=== PATIENT | male | born 1970 | race Asian ===

== ENCOUNTER → 2021-04-23 | Outpatient (CLI) | payer OTHER ==
[~2021-04-23] MED LIST: CITA-144 PO
== END | disposition home or self-care (01) ==
LOC: LABMN 10:09
PROVIDERS: ATTEND Internal Medicine
DX: Z02.1 Encounter for pre-employment examination (principal)
CPT/HCPCS: 86706; 86735; 86762; 86765; 86787

== ENCOUNTER 2023-03-11 09:36 | Inpatient (IN) | payer MEDICAID, OTHER ==
[~2023-03-11] VITALS: Ht 167.6 cm; Wt 86.2 kg
[2023-03-11] MEDS ORDERED: PANTOPRAZOLE SODIUM 40 MG/VIAL IVP ONE (10:00)
[2023-03-11] MEDS ORDERED: SODIUM CHLORIDE 0.9% 1,000 ML IV ONE ×2 (10:00→11:45)
[2023-03-11] MEDS ORDERED: ONDANSETRON HCL 4 MG/2 ML VIAL IVP ONE (10:00)
[2023-03-11] MEDS ORDERED: MORPHINE SULFATE 2 MG/ML SYRINGE IVP ONE (10:00)
[2023-03-11] MEDS ORDERED: IOHEXOL 350 MG/ML 100 ML VIAL ONE (10:14)
[2023-03-11] MEDS ORDERED: SODIUM CHLORIDE 0.9% 100 ML ONE (10:14)
[2023-03-11] MEDS ORDERED: AZITHROMYCIN 500 MG/NS 250 ML IV ONE (10:15)
[2023-03-11] MEDS ORDERED: CefTRIAXone 1 GM/DEXTROSE 50 ML IV ONE (10:15)
[2023-03-11] MEDS: PANTOPRAZOLE SODIUM 80 MG in SODIUM CHLORIDE 0.9% 100 ML IV SCH ×2 (10:16→20:00)
[2023-03-11 10:20] LABS: BASOPHILS % (AUTO) 0.4 % (0.0-2.0); EOSINOPHILS % (AUTO) 0 % (1.0-6.0); HEMATOCRIT 26.7 % (41-53); LYMPHOCYTES # (AUTO) 0.8 K/uL (1.0-4.8); LYMPHOCYTES % (AUTO) 7.1 % (22.0-44.0); MEAN CORPUSCULAR HEMOGLOBIN 28.8 pg (26.0-34.0); MEAN CORPUSCULAR HGB CONC 33.8 G/dL (31.0-37.0); MEAN CORPUSCULAR VOLUME 85 fL (80-100); MONOCYTES # (AUTO) 0.7 K/uL (0.1-1.0); MONOCYTES % (AUTO) 6.7 % (2.0-9.0); NEUTROPHILS # (AUTO) 9.5 K/uL (1.8-7.7); NEUTROPHILS % (AUTO) 85.8 % (40.0-70.0); PLATELET COUNT (AUTO) 737 K/uL (150-450); RED BLOOD CELL COUNT(AUTO) 3.13 MIL/uL (4.50-5.90); RED CELL DISTRIBUTION WIDTH 14.3 % (11.5-14.5); WHITE BLOOD COUNT (AUTO) 11.1 K/uL (4.5-11.0)
[2023-03-11 10:28] LABS: ANION GAP 14 mmol/L (8-16); CALCIUM, TOTAL 8.5 mg/dL (8.8-10.5); CARBON DIOXIDE 26 mmol/L (22-29); CHLORIDE 94 mmol/L (98-107); CREATININE 1.21 mg/dL (0.60-1.30); GLOMERULAR FILTR. RATE CALC > 60 mL/min (>60); GLUCOSE,RANDOM 118 mg/dL (70-110); POTASSIUM 3.8 mmol/L (3.5-5.1); SODIUM SERUM 134 mmol/L (136-145); UREA NITROGEN, BLOOD 20 mg/dL (7-18)
[2023-03-11 10:34] LABS: ALANINE AMINOTRANSFERASE 615 U/L (12-78); ALBUMIN 2.5 g/dL (3.4-5.0); ALKALINE PHOSPHATASE 333 U/L (46-116); ASPARTATE AMINOTRANSFERASE 903 U/L (15-37); BILIRUBIN,TOTAL 1.5 mg/dL (0.1-1.0); CREATINE KINASE, TOTAL ONLY 70 U/L (39-308); INR 1.3 (0.9-1.1); LIPASE 45 U/L (16-77); PROTHROMBIN TIME 13.7 SEC (9.4-11.6); TOTAL PROTEIN, SERUM 7.9 g/dL (6.4-8.2)
[2023-03-11 10:35] LABS: ACETAMINOPHEN < 2 mcg/mL (10-30); TROPONIN I-HIGH SENSITIVITY 23 ng/L (<76)
[2023-03-11 10:39] LABS: COVID AG,FIA SOURCE NASAL SWAB
[2023-03-11 10:40] LABS: B-TYPE NATRIURETIC PEPTIDE 163 pg/mL (0-100)
[2023-03-11 10:41] LABS: LACTIC ACID 3.8 mmol/L (0.4-2.0)
[2023-03-11 10:44] LABS: OCCULT BLOOD STOOL SINGLE ONLY NEGATIVE (NEGATIVE)
[2023-03-11 10:49] LABS: ALCOHOL, BLOOD (SERUM) < 3 mg/dL (0-10)
[2023-03-11 10:55] LABS: SALICYLATE < 2.8 mg/dL (2.8-20.0)
[2023-03-11 10:59] LABS: INFLUENZA TYPE A NEGATIVE FOR TYPE A (NEGATIVE); INFLUENZA TYPE B NEGATIVE FOR TYPE B (NEGATIVE)
[2023-03-11 11:14] LABS: SARS-COV2 (COVID) ANTIGEN,FIA Positive (Negative)
[2023-03-11 12:43] LABS: TROPONIN I-HIGH SENSITIVITY 19 ng/L (<76)
[2023-03-11] MEDS ORDERED: IBUPROFEN 600 MG TABLET PO ONE (13:30)
[2023-03-11] MEDS ORDERED: 0.9% SODIUM CHLORIDE 10 ML SYRINGE IVP PRN (13:45)
[2023-03-11] MEDS ORDERED: ONDANSETRON HCL 4 MG/2 ML VIAL IVP PRN ×2 (13:45→14:15)
[2023-03-11] MEDS ORDERED: IBUPROFEN 400 MG TABLET PO SCH (14:15)
[2023-03-11] MEDS ORDERED: MAGNESIUM HYDROXIDE SUSPENSION 30 ML UDCUP PO PRN (14:15)
[2023-03-11] MEDS ORDERED: ACETAMINOPHEN 325 MG TABLET PO PRN (14:15)
[2023-03-11] MEDS ORDERED: BISACODYL 10 MG RECTAL RECTAL SUPPOSITORY PR PRN (14:15)
[2023-03-11] MEDS: SODIUM CHLORIDE 0.9% 1,000 ML IV SCH ×2 (14:48→22:08)
[2023-03-11] MEDS: COLCHICINE 0.6 MG TABLET PO SCH ×2 (15:18→22:09)
[2023-03-11] MEDS ORDERED: SODIUM CHLORIDE 0.9% 250 ML IV ONE (15:20)
[2023-03-11 16:00] VITALS: BP 122/79; PULSE 113; PULSE 115; RESP 17; TEMP 99.4
[2023-03-11] MEDS: MORPHINE SULFATE 2 MG/ML SYRINGE IVP PRN (16:03)
[2023-03-11 20:00] VITALS: BP 131/84; PULSE 111; PULSE 113; RESP 19; TEMP 99.5
[2023-03-11 21:01] LABS: HEMOGLOBIN 8.9 g/dL (13.5-17.5)
[2023-03-11] MEDS: ZOLPIDEM TARTRATE 5 MG TABLET PO PRN (22:07)
[2023-03-11] MEDS: DOCUSATE SODIUM 100 MG CAPSULE PO SCH (22:09)
[2023-03-12] VITALS: BP 113/81; PULSE 113; PULSE 119; RESP 24; TEMP 98.2
[2023-03-12] MEDS: IBUPROFEN 600 MG TABLET PO SCH ×5 (00:36→23:02)
[2023-03-12 01:13] LABS: APPEARANCE,URINE CLEAR (CLEAR); BILIRUBIN,URINE NEGATIVE (NEGATIVE); COLOR,URINE YELLOW (YELLOW); GLUCOSE, URINE (UA) NEGATIVE (NEGATIVE); KETONES,URINE NEGATIVE (NEGATIVE); LEUKOCYTE ESTERASE ,URINE NEGATIVE (NEGATIVE); NITRATE,URINE NEGATIVE (NEGATIVE); OCCULT BLOOD,URINE NEGATIVE (NEGATIVE); PROTEIN,URINE 30-70 mg/dL (NEGATIVE); UROBILINOGEN,URINE <=1.0 mg/dL (<=1.0)
[2023-03-12 01:20] LABS: ALCOHOL, URINE DRUG SCREEN NEGATIVE (NEGATIVE); AMPHET/METH SCREEN,URINE NEGATIVE (NEGATIVE); BARBITURATE SCREEN, URINE NEGATIVE (NEGATIVE); BENZODIAZEPINES SCREEN,URINE NEGATIVE (NEGATIVE); CANNABINOID SCREEN,URINE POSITIVE (NEGATIVE); COCAINE SCREEN,URINE NEGATIVE (NEGATIVE); METHADONE SCREEN, URINE NEGATIVE (NEGATIVE); OPIATE SCREEN,URINE POSITIVE (NEGATIVE); PHENCYCLIDINE SCREEN,URINE NEGATIVE (NEGATIVE)
[2023-03-12 04:00] VITALS: BP 101/74; PULSE 123; RESP 26; TEMP 98.7
[2023-03-12 05:55] LABS: BASOPHILS % (AUTO) 0.4 % (0.0-2.0); EOSINOPHILS % (AUTO) 0.1 % (1.0-6.0); HEMATOCRIT 25.5 % (41-53); HEMOGLOBIN 8.6 g/dL (13.5-17.5); LYMPHOCYTES # (AUTO) 1.3 K/uL (1.0-4.8); LYMPHOCYTES % (AUTO) 10.9 % (22.0-44.0); MEAN CORPUSCULAR HEMOGLOBIN 28.8 pg (26.0-34.0); MEAN CORPUSCULAR HGB CONC 33.5 G/dL (31.0-37.0); MEAN CORPUSCULAR VOLUME 86 fL (80-100); MONOCYTES % (AUTO) 8.6 % (2.0-9.0); NEUTROPHILS # (AUTO) 9.6 K/uL (1.8-7.7); PLATELET COUNT (AUTO) 675 K/uL (150-450); RED BLOOD CELL COUNT(AUTO) 2.97 MIL/uL (4.50-5.90); RED CELL DISTRIBUTION WIDTH 14.3 % (11.5-14.5)
[2023-03-12 05:56] LABS: INR 1.4 (0.9-1.1); PROTHROMBIN TIME 14.3 SEC (9.4-11.6)
[2023-03-12 06:05] LABS: TROPONIN I-HIGH SENSITIVITY 16 ng/L (<76)
[2023-03-12] MEDS: SODIUM CHLORIDE 0.9% 1,000 ML IV SCH ×3 (06:37→16:08)
[2023-03-12] MEDS: PANTOPRAZOLE SODIUM 40 MG DR TABLET PO SCH (07:46)
[2023-03-12] MEDS: DOCUSATE SODIUM 100 MG CAPSULE PO SCH ×2 (07:47→20:49)
[2023-03-12] MEDS: COLCHICINE 0.6 MG TABLET PO SCH ×2 (07:47→20:49)
[2023-03-12] MEDS: CefTRIAXone 1 GM/DEXTROSE 50 ML IV SCH (07:48)
[2023-03-12 08:00] VITALS: BP 122/81; PULSE 123; PULSE 124; RESP 19; TEMP 98.5
[2023-03-12 10:23] LABS: ANION GAP 15 mmol/L (8-16); CALCIUM, TOTAL 8.3 mg/dL (8.8-10.5); CARBON DIOXIDE 21 mmol/L (22-29); CHLORIDE 100 mmol/L (98-107); CREATININE 1.12 mg/dL (0.60-1.30); GLOMERULAR FILTR. RATE CALC > 60 mL/min (>60); GLUCOSE,RANDOM 98 mg/dL (70-110); POTASSIUM 4.3 mmol/L (3.5-5.1); SODIUM SERUM 136 mmol/L (136-145); UREA NITROGEN, BLOOD 24 mg/dL (7-18)
[2023-03-12 10:35] LABS: ALANINE AMINOTRANSFERASE 1133 U/L (12-78); ALBUMIN 2.3 g/dL (3.4-5.0); ALKALINE PHOSPHATASE 287 U/L (46-116); BILIRUBIN,TOTAL 1.2 mg/dL (0.1-1.0); TOTAL PROTEIN, SERUM 7.5 g/dL (6.4-8.2)
[2023-03-12 10:38] LABS: ASPARTATE AMINOTRANSFERASE 1869 U/L (15-37)
[2023-03-12] MEDS: AZITHROMYCIN 500 MG/NS 250 ML IV SCH (10:47)
[2023-03-12 11:23] LABS: C-REACTIVE PROTEIN QUANT 20.57 mg/dL (0.00-0.30)
[2023-03-12 12:00] VITALS: BP 127/77; PULSE 113; PULSE 115; RESP 17; TEMP 98.2
[2023-03-12] MEDS: MORPHINE SULFATE 2 MG/ML SYRINGE IVP PRN ×3 (12:34→23:02)
[2023-03-12] MEDS ORDERED: VANCOMYCIN 1GM/WATER(PEG/NADA) 200 ML IV ONE (13:30)
[2023-03-12 13:32] LABS: HEMATOCRIT 26.2 % (41-53); HEMOGLOBIN 8.6 g/dL (13.5-17.5)
[2023-03-12 16:00] VITALS: BP 114/76; PULSE 108; PULSE 109; RESP 15; TEMP 98.4
[2023-03-12 20:00] VITALS: BP 120/74; PULSE 106; RESP 13; TEMP 98.2
[2023-03-12] MEDS: VANCOMYCIN 1GM/WATER(PEG/NADA) 200 ML IV SCH (20:49)
[2023-03-12 21:37] LABS: HEMATOCRIT 26.2 % (41-53); HEMOGLOBIN 8.6 g/dL (13.5-17.5)
[2023-03-13] VITALS (8 sets, daily range): BP systolic 125–155; BP diastolic 58–102; PULSE 94–110; RESP 13–26; TEMP 98–98.5
[2023-03-13] MEDS: MORPHINE SULFATE 2 MG/ML SYRINGE IVP PRN ×3 (03:16→12:18)
[2023-03-13 05:34] LABS: BASOPHILS % (AUTO) 0.4 % (0.0-2.0); EOSINOPHILS % (AUTO) 0.2 % (1.0-6.0); HEMATOCRIT 26.2 % (41-53); HEMOGLOBIN 8.9 g/dL (13.5-17.5); LYMPHOCYTES # (AUTO) 1.5 K/uL (1.0-4.8); LYMPHOCYTES % (AUTO) 9.8 % (22.0-44.0); MEAN CORPUSCULAR HEMOGLOBIN 29.1 pg (26.0-34.0); MEAN CORPUSCULAR VOLUME 86 fL (80-100); MONOCYTES # (AUTO) 0.9 K/uL (0.1-1.0); MONOCYTES % (AUTO) 6.2 % (2.0-9.0); NEUTROPHILS # (AUTO) 12.3 K/uL (1.8-7.7); NEUTROPHILS % (AUTO) 83.4 % (40.0-70.0); PLATELET COUNT (AUTO) 564 K/uL (150-450); RED BLOOD CELL COUNT(AUTO) 3.06 MIL/uL (4.50-5.90); RED CELL DISTRIBUTION WIDTH 14.6 % (11.5-14.5); WHITE BLOOD COUNT (AUTO) 14.8 K/uL (4.5-11.0)
[2023-03-13 05:45] LABS: INR 1.6 (0.9-1.1); PROTHROMBIN TIME 16.6 SEC (9.4-11.6)
[2023-03-13 06:03] LABS: ALBUMIN 2.2 g/dL (3.4-5.0); BILIRUBIN,TOTAL 1.4 mg/dL (0.1-1.0); C-REACTIVE PROTEIN QUANT 17.98 mg/dL (0.00-0.30); CREATININE 1.47 mg/dL (0.60-1.30); POTASSIUM 4.2 mmol/L (3.5-5.1); TOTAL PROTEIN, SERUM 7.1 g/dL (6.4-8.2)
[2023-03-13] MEDS: SODIUM CHLORIDE 0.9% 1,000 ML IV SCH ×3 (06:26→22:10)
[2023-03-13] MEDS ORDERED: SODIUM CHLORIDE 0.9% 250 ML IV ONE (08:13)
[2023-03-13] MEDS: PANTOPRAZOLE SODIUM 40 MG DR TABLET PO SCH (08:20)
[2023-03-13] MEDS: IBUPROFEN 600 MG TABLET PO SCH (08:20)
[2023-03-13] MEDS: COLCHICINE 0.6 MG TABLET PO SCH ×2 (08:21→22:10)
[2023-03-13] MEDS: VANCOMYCIN 1GM/WATER(PEG/NADA) 200 ML IV SCH (08:21)
[2023-03-13] MEDS: DOCUSATE SODIUM 100 MG CAPSULE PO SCH ×2 (08:21→22:10)
[2023-03-13] MEDS: CefTRIAXone 1 GM/DEXTROSE 50 ML IV SCH (08:21)
[2023-03-13] MEDS: AZITHROMYCIN 500 MG/NS 250 ML IV SCH (08:53)
[2023-03-13] MEDS ORDERED: LIDOCAINE/PF 1% 30 ML VIAL ONE (14:16)
[2023-03-13] MEDS ORDERED: MIDAZOLAM HCL 2 MG/2 ML VIAL ONE (14:16)
[2023-03-13] MEDS ORDERED: FentaNYL CITRATE PF 100 MCG/2 ML VIAL ONE (14:16)
[2023-03-13] MEDS ORDERED: HEPARIN SODIUM 1000 UNITS/NS 1,000 ML IARTER ONE (14:30)
[2023-03-13] MEDS ORDERED: LIDOCAINE 1% 30 ML/SOD BICARB 8.4% 4 ML SQ ONE (14:30)
[2023-03-13] MEDS ORDERED: FentaNYL CITRATE PF 100 MCG/2 ML VIAL IVP ONE (14:30)
[2023-03-13] MEDS ORDERED: ATROPINE SULFATE 0.1 MG/ML 10 ML SYRINGE IVP ONE (14:50)
[2023-03-13 19:16] LABS: SPECIMENTYPE,BODY FLUID PERICARDIAL
[2023-03-13 21:24] LABS: APPEARANCE,UNSPUN,BODY FLUID CLOUDY (CLEAR); BASOPHILS,BODY FLUID 0 %; COLOR,BODY FLUID DARK YELLOW (LT YELLOW); EOSINOPHILS,BF (ANAL) 0 %; LYMPHOCYTES,BODY FLUID 8 %; MONOCYTES,BODY FLUID 1 %; NEUTROPHILS,BODY FLUID 91 %; TOTAL VOLUME,BODY FLUID 120 mL
[2023-03-13 22:02] LABS: WBC, BODY FLUID 165600 /cu. mm.
[2023-03-13 22:09] LABS: APPEARANCE,SPUN,BODY FLUID CLEAR (CLEAR)
[2023-03-13] MEDS: VANCOMYCIN HCL 750 MG in DEXTROSE 5%-WATER 250 ML IV SCH (22:10)
[2023-03-14] VITALS: BP 134/90; PULSE 102; PULSE 99; RESP 16; TEMP 98.3
[2023-03-14 03:07] LABS: HEPATITIS A ANTIBODY IGM Negative (Negative); HEPATITIS A ANTIBODY TOTAL Positive (Negative); HEPATITIS B CORE IGM Negative (Negative); HEPATITIS C AB (EIA) Non Reactive (Non Reactive)
[2023-03-14 04:00] VITALS: BP 130/79; PULSE 100; PULSE 101; RESP 13; TEMP 98
[2023-03-14 05:51] LABS: HEMATOCRIT 28.9 % (41-53); MEAN CORPUSCULAR HEMOGLOBIN 29.5 pg (26.0-34.0); MEAN CORPUSCULAR HGB CONC 34.5 G/dL (31.0-37.0); MEAN CORPUSCULAR VOLUME 85 fL (80-100); PLATELET COUNT (AUTO) 557 K/uL (150-450); RED BLOOD CELL COUNT(AUTO) 3.38 MIL/uL (4.50-5.90); RED CELL DISTRIBUTION WIDTH 14.4 % (11.5-14.5); WHITE BLOOD COUNT (AUTO) 12.6 K/uL (4.5-11.0)
[2023-03-14 06:03] LABS: INR 1.6 (0.9-1.1); PROTHROMBIN TIME 16.1 SEC (9.4-11.6)
[2023-03-14 06:13] LABS: ALANINE AMINOTRANSFERASE 1401 U/L (12-78); ALBUMIN 1.9 g/dL (3.4-5.0); ALKALINE PHOSPHATASE 240 U/L (46-116); ANION GAP 9 mmol/L (8-16); CALCIUM, TOTAL 7.5 mg/dL (8.8-10.5); CARBON DIOXIDE 23 mmol/L (22-29); CHLORIDE 105 mmol/L (98-107); CREATININE 1.03 mg/dL (0.60-1.30); GLOMERULAR FILTR. RATE CALC > 60 mL/min (>60); GLUCOSE,RANDOM 94 mg/dL (70-110); POTASSIUM 3.7 mmol/L (3.5-5.1); SODIUM SERUM 137 mmol/L (136-145); TOTAL PROTEIN, SERUM 6.5 g/dL (6.4-8.2); UREA NITROGEN, BLOOD 26 mg/dL (7-18)
[2023-03-14 06:18] LABS: BAND NEUTROPHILS % (MANUAL) 14 % (0-5); LYMPHOCYTES % (MANUAL) 8 % (22-44); METAMYELOCYTES % 2 % (0-0); MONOCYTES % (MANUAL) 6 % (2-9); MYELOCYTES % 2 % (0-0); SEGMENTED NEUTROPHILS % 68 % (40-70); TOTAL CELLS COUNTED 100
[2023-03-14 06:24] LABS: ASPARTATE AMINOTRANSFERASE 1389 U/L (15-37)
[2023-03-14] MEDS: SODIUM CHLORIDE 0.9% 1,000 ML IV SCH ×3 (06:24→22:34)
[2023-03-14 07:07] LABS: ANION GAP 12 mmol/L (8-16); CALCIUM, TOTAL 7.8 mg/dL (8.8-10.5); CARBON DIOXIDE 21 mmol/L (22-29); CHLORIDE 104 mmol/L (98-107); CREATININE 0.97 mg/dL (0.60-1.30); GLOMERULAR FILTR. RATE CALC > 60 mL/min (>60); GLUCOSE,RANDOM 95 mg/dL (70-110); POTASSIUM 3.7 mmol/L (3.5-5.1); SODIUM SERUM 137 mmol/L (136-145); UREA NITROGEN, BLOOD 26 mg/dL (7-18)
[2023-03-14 08:00] VITALS: BP 124/81; PULSE 101; RESP 11; TEMP 98.1
[2023-03-14] MEDS: VANCOMYCIN HCL 750 MG in DEXTROSE 5%-WATER 250 ML IV SCH ×2 (08:15→22:34)
[2023-03-14] MEDS: MORPHINE SULFATE 2 MG/ML SYRINGE IVP PRN ×2 (08:20→12:11)
[2023-03-14] MEDS: PANTOPRAZOLE SODIUM 40 MG DR TABLET PO SCH (08:30)
[2023-03-14] MEDS: COLCHICINE 0.6 MG TABLET PO SCH ×2 (08:30→22:34)
[2023-03-14] MEDS: DOCUSATE SODIUM 100 MG CAPSULE PO SCH ×2 (08:30→20:24)
[2023-03-14] MEDS: CefTRIAXone 1 GM/DEXTROSE 50 ML IV SCH (08:31)
[2023-03-14 12:00] VITALS: BP 97/84; PULSE 101; PULSE 97; RESP 18; TEMP 98
[2023-03-14] MEDS: AZITHROMYCIN 500 MG/NS 250 ML IV SCH (12:14)
[2023-03-14] MEDS: HYDROCODONE/ACETAMINOPHEN 5-325 MG TABLET PO PRN (12:15)
[2023-03-14 13:07] LABS: TOTAL PROTEIN,BODY FLUID,REF 5.4 g/dL
[2023-03-14 16:00] VITALS: BP 138/78; PULSE 93; RESP 11; TEMP 98.1
[2023-03-14 20:00] VITALS: BP 148/76; PULSE 103; PULSE 67; RESP 20; TEMP 98.3
[2023-03-15] VITALS: BP 163/88; PULSE 105; PULSE 53; RESP 18; TEMP 98.7
[2023-03-15] MEDS: MORPHINE SULFATE 2 MG/ML SYRINGE IVP PRN ×2 (03:12→08:07)
[2023-03-15 04:00] VITALS: BP 166/97; PULSE 102; PULSE 48; RESP 20; TEMP 99
[2023-03-15] MEDS: HYDROCODONE/ACETAMINOPHEN 5-325 MG TABLET PO PRN ×3 (04:14→20:41)
[2023-03-15 05:53] LABS: BASOPHILS % (AUTO) 0.2 % (0.0-2.0); EOSINOPHILS % (AUTO) 0.6 % (1.0-6.0); HEMOGLOBIN 9.8 g/dL (13.5-17.5); LYMPHOCYTES # (AUTO) 0.8 K/uL (1.0-4.8); LYMPHOCYTES % (AUTO) 9.2 % (22.0-44.0); MEAN CORPUSCULAR HEMOGLOBIN 28.8 pg (26.0-34.0); MEAN CORPUSCULAR HGB CONC 33.8 G/dL (31.0-37.0); MEAN CORPUSCULAR VOLUME 85 fL (80-100); MONOCYTES # (AUTO) 0.5 K/uL (0.1-1.0); MONOCYTES % (AUTO) 6.6 % (2.0-9.0); NEUTROPHILS # (AUTO) 6.9 K/uL (1.8-7.7); NEUTROPHILS % (AUTO) 83.4 % (40.0-70.0); PLATELET COUNT (AUTO) 527 K/uL (150-450); RED BLOOD CELL COUNT(AUTO) 3.41 MIL/uL (4.50-5.90); RED CELL DISTRIBUTION WIDTH 14.6 % (11.5-14.5); WHITE BLOOD COUNT (AUTO) 8.3 K/uL (4.5-11.0)
[2023-03-15 06:07] LABS: INR 1.4 (0.9-1.1); PROTHROMBIN TIME 14.7 SEC (9.4-11.6)
[2023-03-15 06:08] LABS: VANCOMYCIN,RANDOM 4.3 mcg/mL (25.0-50.0)
[2023-03-15] MEDS: SODIUM CHLORIDE 0.9% 1,000 ML IV SCH ×2 (06:41→20:41)
[2023-03-15 07:13] LABS: ALANINE AMINOTRANSFERASE 931 U/L (12-78); ALBUMIN 1.9 g/dL (3.4-5.0); ALKALINE PHOSPHATASE 212 U/L (46-116); ANION GAP 10 mmol/L (8-16); ASPARTATE AMINOTRANSFERASE 483 U/L (15-37); C-REACTIVE PROTEIN QUANT 9.58 mg/dL (0.00-0.30); CALCIUM, TOTAL 7.4 mg/dL (8.8-10.5); CARBON DIOXIDE 24 mmol/L (22-29); CHLORIDE 104 mmol/L (98-107); CREATININE 0.78 mg/dL (0.60-1.30); GLOMERULAR FILTR. RATE CALC > 60 mL/min (>60); GLUCOSE,RANDOM 99 mg/dL (70-110); POTASSIUM 3.2 mmol/L (3.5-5.1); SODIUM SERUM 138 mmol/L (136-145); TOTAL PROTEIN, SERUM 6.3 g/dL (6.4-8.2); UREA NITROGEN, BLOOD 9 mg/dL (7-18)
[2023-03-15] MEDS: COLCHICINE 0.6 MG TABLET PO SCH ×2 (07:59→20:41)
[2023-03-15] MEDS: PANTOPRAZOLE SODIUM 40 MG DR TABLET PO SCH (07:59)
[2023-03-15 08:00] VITALS: BP 129/78; PULSE 96; RESP 16; TEMP 98.7
[2023-03-15] MEDS: CefTRIAXone 1 GM/DEXTROSE 50 ML IV SCH (08:00)
[2023-03-15] MEDS: VANCOMYCIN HCL 750 MG in DEXTROSE 5%-WATER 250 ML IV SCH ×2 (08:00→16:21)
[2023-03-15] MEDS: AZITHROMYCIN 500 MG/NS 250 ML IV SCH (10:19)
[2023-03-15] MEDS: POTASSIUM CHLORIDE 20 MEQ ER TABLET PO PRN (11:32)
[2023-03-15 12:00] VITALS: BP 156/93; PULSE 101; RESP 21; TEMP 98.4
[2023-03-15 13:07] LABS: QUANTIFERON+, Nil Value 0.02 IU/mL; QUANTIFERON+,Mitogen Value 0.03 IU/mL; QUANTIFERON+,TB1 Antigen Value 0.01 IU/mL; QUANTIFERON+,TB2 Antigen Value 0.01 IU/mL; QUANTIFERON, TB GOLD PLUS Indeterminate (Negative)
[2023-03-15] MEDS: NAFCILLIN SODIUM 1 GM in DEXTROSE 5%-WATER 50 ML IV SCH ×3 (14:12→20:42)
[2023-03-15 16:00] VITALS: BP 140/90; PULSE 96; RESP 11; TEMP 98.5
[2023-03-15 20:00] VITALS: BP 140/90; PULSE 98; RESP 15; TEMP 97.8
[2023-03-15 20:06] LABS: MYCOPLASMA AB IGM <770 U/mL (0-769)
[2023-03-16] VITALS: BP 154/93; PULSE 96; RESP 12; TEMP 98.4
[2023-03-16] MEDS: VANCOMYCIN HCL 750 MG in DEXTROSE 5%-WATER 250 ML IV SCH ×2 (01:43→08:57)
[2023-03-16] MEDS: NAFCILLIN SODIUM 1 GM in DEXTROSE 5%-WATER 50 ML IV SCH ×4 (02:00→14:32)
[2023-03-16] MEDS: HYDROCODONE/ACETAMINOPHEN 5-325 MG TABLET PO PRN ×2 (02:18→20:12)
[2023-03-16 04:00] VITALS: BP 152/98; PULSE 94; RESP 13; TEMP 98.2
[2023-03-16] MEDS: SODIUM CHLORIDE 0.9% 1,000 ML IV SCH ×2 (04:45→16:07)
[2023-03-16 05:52] LABS: BASOPHILS % (AUTO) 0.4 % (0.0-2.0); EOSINOPHILS % (AUTO) 1.9 % (1.0-6.0); HEMATOCRIT 30.8 % (41-53); HEMOGLOBIN 10.2 g/dL (13.5-17.5); LYMPHOCYTES # (AUTO) 1.1 K/uL (1.0-4.8); MEAN CORPUSCULAR HEMOGLOBIN 28.5 pg (26.0-34.0); MEAN CORPUSCULAR HGB CONC 33.2 G/dL (31.0-37.0); MEAN CORPUSCULAR VOLUME 86 fL (80-100); MONOCYTES # (AUTO) 0.7 K/uL (0.1-1.0); MONOCYTES % (AUTO) 10.1 % (2.0-9.0); NEUTROPHILS # (AUTO) 4.6 K/uL (1.8-7.7); NEUTROPHILS % (AUTO) 70.6 % (40.0-70.0); PLATELET COUNT (AUTO) 497 K/uL (150-450); RED BLOOD CELL COUNT(AUTO) 3.59 MIL/uL (4.50-5.90); RED CELL DISTRIBUTION WIDTH 14.6 % (11.5-14.5); WHITE BLOOD COUNT (AUTO) 6.6 K/uL (4.5-11.0)
[2023-03-16 06:08] LABS: ALANINE AMINOTRANSFERASE 679 U/L (12-78); ALBUMIN 1.9 g/dL (3.4-5.0); ALKALINE PHOSPHATASE 194 U/L (46-116); ANION GAP 8 mmol/L (8-16); ASPARTATE AMINOTRANSFERASE 233 U/L (15-37); CALCIUM, TOTAL 7.5 mg/dL (8.8-10.5); CARBON DIOXIDE 28 mmol/L (22-29); CHLORIDE 103 mmol/L (98-107); CREATININE 0.68 mg/dL (0.60-1.30); GLOMERULAR FILTR. RATE CALC > 60 mL/min (>60); GLUCOSE,RANDOM 95 mg/dL (70-110); SODIUM SERUM 139 mmol/L (136-145); TOTAL PROTEIN, SERUM 6.4 g/dL (6.4-8.2); UREA NITROGEN, BLOOD 5 mg/dL (7-18)
[2023-03-16] MEDS: POTASSIUM CHLORIDE 20 MEQ ER TABLET PO PRN ×3 (06:35→17:48)
[2023-03-16 08:00] VITALS: BP 167/103; PULSE 100; RESP 22; TEMP 98.5
[2023-03-16] MEDS: COLCHICINE 0.6 MG TABLET PO SCH ×2 (08:57→20:12)
[2023-03-16] MEDS: PANTOPRAZOLE SODIUM 40 MG DR TABLET PO SCH (08:57)
[2023-03-16] MEDS: MORPHINE SULFATE 2 MG/ML SYRINGE IVP PRN (09:05)
[2023-03-16 12:00] VITALS: BP 139/92; PULSE 103; RESP 24; TEMP 98.7
[2023-03-16 13:07] LABS: COXSACKIE A16 IGM Negative titer (Neg:<1:10); COXSACKIE A24 IGM Negative titer (Neg:<1:10); COXSACKIE A7 IGM Negative titer (Neg:<1:10); COXSACKIE A9 IGM Negative titer (Neg:<1:10)
[2023-03-16 16:00] VITALS: BP 151/105; PULSE 108; RESP 26; TEMP 98.9
[2023-03-16 17:06] LABS: LEGIONELLA PNEUMO AG URINE Negative (Negative); S PNEUMO SOURCE Urine; STREP PNEUMONIAE AG URINE Negative (Negative)
[2023-03-16] MEDS: NAFCILLIN SODIUM 2 GM in DEXTROSE 5%-WATER 100 ML IV SCH ×2 (17:48→22:05)
[2023-03-16 20:00] VITALS: BP 156/104; PULSE 106; RESP 24; TEMP 99.7
[2023-03-17] VITALS: BP 151/94; PULSE 98; RESP 15; TEMP 98.6
[2023-03-17] MEDS: NAFCILLIN SODIUM 2 GM in DEXTROSE 5%-WATER 100 ML IV SCH ×6 (03:21→22:58)
[2023-03-17] MEDS ORDERED: SODIUM CHLORIDE 0.9% 250 ML IV ONE (03:23)
[2023-03-17 04:00] VITALS: BP 146/102; PULSE 100; RESP 13; TEMP 98.3
[2023-03-17] MEDS: SODIUM CHLORIDE 0.9% 1,000 ML IV SCH ×2 (04:20→17:55)
[2023-03-17 05:36] LABS: BASOPHILS % (AUTO) 0.6 % (0.0-2.0); HEMATOCRIT 31.1 % (41-53); HEMOGLOBIN 10.4 g/dL (13.5-17.5); LYMPHOCYTES # (AUTO) 0.9 K/uL (1.0-4.8); MEAN CORPUSCULAR HEMOGLOBIN 28.3 pg (26.0-34.0); MEAN CORPUSCULAR HGB CONC 33.6 G/dL (31.0-37.0); MEAN CORPUSCULAR VOLUME 84 fL (80-100); MONOCYTES # (AUTO) 0.6 K/uL (0.1-1.0); MONOCYTES % (AUTO) 10.4 % (2.0-9.0); NEUTROPHILS # (AUTO) 4.5 K/uL (1.8-7.7); PLATELET COUNT (AUTO) 488 K/uL (150-450); RED BLOOD CELL COUNT(AUTO) 3.69 MIL/uL (4.50-5.90); RED CELL DISTRIBUTION WIDTH 14.6 % (11.5-14.5); WHITE BLOOD COUNT (AUTO) 6.2 K/uL (4.5-11.0)
[2023-03-17 05:49] LABS: ANION GAP 6 mmol/L (8-16); CALCIUM, TOTAL 7.8 mg/dL (8.8-10.5); CARBON DIOXIDE 29 mmol/L (22-29); CHLORIDE 102 mmol/L (98-107); CREATININE 0.69 mg/dL (0.60-1.30); GLOMERULAR FILTR. RATE CALC > 60 mL/min (>60); GLUCOSE,RANDOM 102 mg/dL (70-110); POTASSIUM 3.3 mmol/L (3.5-5.1); SODIUM SERUM 137 mmol/L (136-145); UREA NITROGEN, BLOOD 5 mg/dL (7-18)
[2023-03-17] MEDS: POTASSIUM CHL 10 MEQ/WATER 50 ML IV PRN ×3 (06:43→09:45)
[2023-03-17] MEDS: COLCHICINE 0.6 MG TABLET PO SCH ×2 (07:55→20:26)
[2023-03-17] MEDS: HYDROCODONE/ACETAMINOPHEN 5-325 MG TABLET PO PRN ×2 (07:55→18:07)
[2023-03-17] MEDS: PANTOPRAZOLE SODIUM 40 MG DR TABLET PO SCH (07:55)
[2023-03-17 08:00] VITALS: BP 152/93; PULSE 105; RESP 14; TEMP 98.3
[2023-03-17 10:07] LABS: C. PNEUMONIAE IGM TITER < 1:10 (< 1:10); C. PSITTACI IGM TITER < 1:10 (< 1:10); C. TRACHOMATIS IGM TITER < 1:10 (< 1:10)
[2023-03-17] MEDS: MORPHINE SULFATE 2 MG/ML SYRINGE IVP PRN (11:03)
[2023-03-17 12:00] VITALS: BP 136/93; PULSE 102; RESP 23; TEMP 98.4
[2023-03-17 15:06] LABS: BILIRUBIN,DIRECT 0.5 mg/dL (0.00-0.20); BILIRUBIN,TOTAL 0.9 mg/dL (0.1-1.0); TOTAL PROTEIN, SERUM 6.7 g/dL (6.4-8.2)
[2023-03-17 16:00] VITALS: BP 147/100; PULSE 108; RESP 15; TEMP 99.2
[2023-03-17 20:00] VITALS: BP 156/95; PULSE 106; RESP 18; TEMP 98.6
[2023-03-18] VITALS: BP 149/93; PULSE 103; RESP 12; TEMP 98.4
[2023-03-18] MEDS: NAFCILLIN SODIUM 2 GM in DEXTROSE 5%-WATER 100 ML IV SCH ×6 (02:27→21:28)
[2023-03-18 04:00] VITALS: BP 134/96; PULSE 106; RESP 15; TEMP 98.8
[2023-03-18 05:46] LABS: BASOPHILS % (AUTO) 0.4 % (0.0-2.0); EOSINOPHILS % (AUTO) 2.5 % (1.0-6.0); HEMATOCRIT 32.1 % (41-53); HEMOGLOBIN 10.9 g/dL (13.5-17.5); LYMPHOCYTES # (AUTO) 1.3 K/uL (1.0-4.8); LYMPHOCYTES % (AUTO) 19.1 % (22.0-44.0); MEAN CORPUSCULAR HEMOGLOBIN 28.7 pg (26.0-34.0); MEAN CORPUSCULAR HGB CONC 33.9 G/dL (31.0-37.0); MEAN CORPUSCULAR VOLUME 85 fL (80-100); MONOCYTES # (AUTO) 0.7 K/uL (0.1-1.0); MONOCYTES % (AUTO) 10.4 % (2.0-9.0); NEUTROPHILS # (AUTO) 4.5 K/uL (1.8-7.7); NEUTROPHILS % (AUTO) 67.6 % (40.0-70.0); PLATELET COUNT (AUTO) 477 K/uL (150-450); RED CELL DISTRIBUTION WIDTH 15.1 % (11.5-14.5); WHITE BLOOD COUNT (AUTO) 6.7 K/uL (4.5-11.0)
[2023-03-18 05:59] LABS: ALANINE AMINOTRANSFERASE 400 U/L (12-78); ALKALINE PHOSPHATASE 170 U/L (46-116); ANION GAP 10 mmol/L (8-16); ASPARTATE AMINOTRANSFERASE 90 U/L (15-37); BILIRUBIN,TOTAL 1.1 mg/dL (0.1-1.0); CARBON DIOXIDE 28 mmol/L (22-29); CHLORIDE 103 mmol/L (98-107); CREATININE 0.84 mg/dL (0.60-1.30); GLOMERULAR FILTR. RATE CALC > 60 mL/min (>60); GLUCOSE,RANDOM 103 mg/dL (70-110); POTASSIUM 3.4 mmol/L (3.5-5.1); SODIUM SERUM 141 mmol/L (136-145); TOTAL PROTEIN, SERUM 7.2 g/dL (6.4-8.2); UREA NITROGEN, BLOOD 4 mg/dL (7-18)
[2023-03-18 08:00] VITALS: BP 151/98; PULSE 104; RESP 16; TEMP 98.2
[2023-03-18] MEDS: COLCHICINE 0.6 MG TABLET PO SCH ×2 (09:07→20:15)
[2023-03-18] MEDS: SODIUM CHLORIDE 0.9% 1,000 ML IV SCH ×2 (09:08→21:28)
[2023-03-18] MEDS: PANTOPRAZOLE SODIUM 40 MG DR TABLET PO SCH (09:08)
[2023-03-18] MEDS: HYDROCODONE/ACETAMINOPHEN 5-325 MG TABLET PO PRN ×2 (11:43→20:15)
[2023-03-18] MEDS: POTASSIUM CHLORIDE 20 MEQ ER TABLET PO PRN (11:45)
[2023-03-18 12:00] VITALS: BP 145/68; PULSE 102; RESP 18; TEMP 98.4
[2023-03-18 16:00] VITALS: BP 152/98; PULSE 104; PULSE 106; RESP 16; TEMP 98.9
[2023-03-18 20:00] VITALS: BP 140/103; PULSE 110; RESP 14; TEMP 98.4
[2023-03-18] MEDS: ZOLPIDEM TARTRATE 5 MG TABLET PO PRN (20:15)
[2023-03-19] VITALS (8 sets, daily range): BP systolic 136–159; BP diastolic 88–107; PULSE 103–122; RESP 14–19; TEMP 98–98.4
[2023-03-19] MEDS: NAFCILLIN SODIUM 2 GM in DEXTROSE 5%-WATER 100 ML IV SCH ×6 (02:43→21:53)
[2023-03-19] MEDS: HYDROCODONE/ACETAMINOPHEN 5-325 MG TABLET PO PRN ×2 (05:53→22:08)
[2023-03-19 06:45] LABS: BASOPHILS % (AUTO) 0.5 % (0.0-2.0); HEMOGLOBIN 10.8 g/dL (13.5-17.5); LYMPHOCYTES # (AUTO) 1.2 K/uL (1.0-4.8); LYMPHOCYTES % (AUTO) 18.1 % (22.0-44.0); MEAN CORPUSCULAR HEMOGLOBIN 27.8 pg (26.0-34.0); MEAN CORPUSCULAR HGB CONC 32.8 G/dL (31.0-37.0); MEAN CORPUSCULAR VOLUME 85 fL (80-100); MONOCYTES # (AUTO) 0.7 K/uL (0.1-1.0); MONOCYTES % (AUTO) 11.6 % (2.0-9.0); NEUTROPHILS # (AUTO) 4.4 K/uL (1.8-7.7); NEUTROPHILS % (AUTO) 67.8 % (40.0-70.0); PLATELET COUNT (AUTO) 464 K/uL (150-450); RED BLOOD CELL COUNT(AUTO) 3.89 MIL/uL (4.50-5.90); RED CELL DISTRIBUTION WIDTH 14.8 % (11.5-14.5); WHITE BLOOD COUNT (AUTO) 6.4 K/uL (4.5-11.0)
[2023-03-19 07:15] LABS: ALANINE AMINOTRANSFERASE 326 U/L (12-78); ALBUMIN 2.1 g/dL (3.4-5.0); ALKALINE PHOSPHATASE 154 U/L (46-116); ANION GAP 8 mmol/L (8-16); ASPARTATE AMINOTRANSFERASE 61 U/L (15-37); BILIRUBIN,TOTAL 0.9 mg/dL (0.1-1.0); CALCIUM, TOTAL 8.1 mg/dL (8.8-10.5); CARBON DIOXIDE 27 mmol/L (22-29); CHLORIDE 101 mmol/L (98-107); CREATININE 0.83 mg/dL (0.60-1.30); GLOMERULAR FILTR. RATE CALC > 60 mL/min (>60); GLUCOSE,RANDOM 97 mg/dL (70-110); POTASSIUM 3.5 mmol/L (3.5-5.1); SODIUM SERUM 136 mmol/L (136-145); TOTAL PROTEIN, SERUM 6.9 g/dL (6.4-8.2); UREA NITROGEN, BLOOD 6 mg/dL (7-18)
[2023-03-19] MEDS: COLCHICINE 0.6 MG TABLET PO SCH ×2 (08:45→21:53)
[2023-03-19] MEDS: PANTOPRAZOLE SODIUM 40 MG DR TABLET PO SCH (08:45)
[2023-03-19] MEDS: POTASSIUM CHLORIDE 20 MEQ ER TABLET PO PRN (08:45)
[2023-03-19] MEDS: SODIUM CHLORIDE 0.9% 1,000 ML IV SCH (11:21)
[2023-03-19] MEDS: MORPHINE SULFATE 2 MG/ML SYRINGE IVP PRN (14:14)
[2023-03-20] VITALS (7 sets, daily range): BP systolic 129–167; BP diastolic 89–105; PULSE 111–124; RESP 13–22; TEMP 98–101
[2023-03-20] MEDS: NAFCILLIN SODIUM 2 GM in DEXTROSE 5%-WATER 100 ML IV SCH ×6 (02:29→22:43)
[2023-03-20] MEDS: HYDROCODONE/ACETAMINOPHEN 5-325 MG TABLET PO PRN ×2 (05:42→10:09)
[2023-03-20 06:38] LABS: BASOPHILS % (AUTO) 0.5 % (0.0-2.0); HEMATOCRIT 31.4 % (41-53); HEMOGLOBIN 10.3 g/dL (13.5-17.5); LYMPHOCYTES # (AUTO) 1.4 K/uL (1.0-4.8); LYMPHOCYTES % (AUTO) 20.8 % (22.0-44.0); MEAN CORPUSCULAR HEMOGLOBIN 27.8 pg (26.0-34.0); MEAN CORPUSCULAR HGB CONC 32.9 G/dL (31.0-37.0); MEAN CORPUSCULAR VOLUME 85 fL (80-100); MONOCYTES # (AUTO) 0.9 K/uL (0.1-1.0); MONOCYTES % (AUTO) 12.8 % (2.0-9.0); NEUTROPHILS # (AUTO) 4.3 K/uL (1.8-7.7); NEUTROPHILS % (AUTO) 63.9 % (40.0-70.0); PLATELET COUNT (AUTO) 435 K/uL (150-450); RED BLOOD CELL COUNT(AUTO) 3.71 MIL/uL (4.50-5.90); RED CELL DISTRIBUTION WIDTH 15.1 % (11.5-14.5); WHITE BLOOD COUNT (AUTO) 6.8 K/uL (4.5-11.0)
[2023-03-20 06:52] LABS: ALANINE AMINOTRANSFERASE 257 U/L (12-78); ALBUMIN 2.1 g/dL (3.4-5.0); ALKALINE PHOSPHATASE 145 U/L (46-116); ANION GAP 7 mmol/L (8-16); ASPARTATE AMINOTRANSFERASE 46 U/L (15-37); CALCIUM, TOTAL 8.4 mg/dL (8.8-10.5); CARBON DIOXIDE 28 mmol/L (22-29); CHLORIDE 101 mmol/L (98-107); GLOMERULAR FILTR. RATE CALC > 60 mL/min (>60); GLUCOSE,RANDOM 102 mg/dL (70-110); POTASSIUM 3.4 mmol/L (3.5-5.1); SODIUM SERUM 136 mmol/L (136-145); TOTAL PROTEIN, SERUM 6.9 g/dL (6.4-8.2); UREA NITROGEN, BLOOD 5 mg/dL (7-18)
[2023-03-20] MEDS: COLCHICINE 0.6 MG TABLET PO SCH ×2 (09:26→20:19)
[2023-03-20] MEDS: PANTOPRAZOLE SODIUM 40 MG DR TABLET PO SCH (09:26)
[2023-03-20] MEDS: POTASSIUM CHLORIDE 20 MEQ ER TABLET PO PRN (09:27)
[2023-03-20] MEDS: SODIUM CHLORIDE 0.9% 1,000 ML IV SCH (10:09)
[2023-03-20] MEDS: BENZONATATE 100 MG CAPSULE PO SCH (17:37)
[2023-03-20] MEDS: MORPHINE SULFATE 2 MG/ML SYRINGE IVP PRN (17:37)
[2023-03-20 20:06] LABS: ANA,IFA (TITER & PATTERN) Positive
[2023-03-21] VITALS: BP 126/54; PULSE 109; RESP 18; TEMP 98.8
[2023-03-21] MEDS: BENZONATATE 100 MG CAPSULE PO SCH ×3 (00:18→16:55)
[2023-03-21] MEDS: ZOLPIDEM TARTRATE 5 MG TABLET PO PRN (00:22)
[2023-03-21] MEDS: NAFCILLIN SODIUM 2 GM in DEXTROSE 5%-WATER 100 ML IV SCH ×6 (02:06→21:07)
[2023-03-21 04:00] VITALS: BP 149/86; PULSE 113; RESP 16; TEMP 98.7
[2023-03-21 06:08] LABS: BASOPHILS % (AUTO) 0.7 % (0.0-2.0); EOSINOPHILS % (AUTO) 1.3 % (1.0-6.0); HEMATOCRIT 31.6 % (41-53); HEMOGLOBIN 10.4 g/dL (13.5-17.5); LYMPHOCYTES # (AUTO) 1.2 K/uL (1.0-4.8); LYMPHOCYTES % (AUTO) 16.5 % (22.0-44.0); MEAN CORPUSCULAR HEMOGLOBIN 27.7 pg (26.0-34.0); MEAN CORPUSCULAR HGB CONC 32.9 G/dL (31.0-37.0); MEAN CORPUSCULAR VOLUME 84 fL (80-100); MONOCYTES # (AUTO) 0.8 K/uL (0.1-1.0); MONOCYTES % (AUTO) 11.2 % (2.0-9.0); NEUTROPHILS % (AUTO) 70.3 % (40.0-70.0); PLATELET COUNT (AUTO) 407 K/uL (150-450); RED BLOOD CELL COUNT(AUTO) 3.77 MIL/uL (4.50-5.90); RED CELL DISTRIBUTION WIDTH 14.9 % (11.5-14.5); WHITE BLOOD COUNT (AUTO) 7.2 K/uL (4.5-11.0)
[2023-03-21 06:14] LABS: ANION GAP 11 mmol/L (8-16); CALCIUM, TOTAL 8.4 mg/dL (8.8-10.5); CARBON DIOXIDE 26 mmol/L (22-29); CHLORIDE 103 mmol/L (98-107); CREATININE 0.91 mg/dL (0.60-1.30); GLOMERULAR FILTR. RATE CALC > 60 mL/min (>60); GLUCOSE,RANDOM 103 mg/dL (70-110); POTASSIUM 3.8 mmol/L (3.5-5.1); SODIUM SERUM 140 mmol/L (136-145); UREA NITROGEN, BLOOD 7 mg/dL (7-18)
[2023-03-21 08:00] VITALS: BP 132/91; PULSE 113; RESP 17; TEMP 98.3
[2023-03-21] MEDS: PANTOPRAZOLE SODIUM 40 MG DR TABLET PO SCH (08:54)
[2023-03-21] MEDS: COLCHICINE 0.6 MG TABLET PO SCH ×2 (08:54→21:02)
[2023-03-21 12:00] VITALS: BP 131/84; PULSE 113; PULSE 117; RESP 38; TEMP 98.1
[2023-03-21] MEDS: SODIUM CHLORIDE 0.9% 1,000 ML IV SCH (12:05)
[2023-03-21 16:00] VITALS: BP 123/96; PULSE 119; RESP 22; TEMP 98.6; TEMP 99.1
[2023-03-21 20:00] VITALS: BP 122/85; PULSE 117; RESP 20; TEMP 100
== END 2023-03-21 22:13 | disposition short-term general hospital (02) | DRG 720 ==
LOC: EMS 09:37 → ICU 13:26
PROVIDERS: ADMIT Internal Medicine; ATTEND Internal Medicine
PROC: 0W9D30Z Drainage of Pericardial Cavity with Drainage Device, Percutaneous Approach (ICD-10-PCS; 2023-03-13)
PROC: 05HY33Z Insertion of Infusion Device into Upper Vein, Percutaneous Approach (ICD-10-PCS; principal; 2023-03-18)
DX: A41.01 Sepsis due to Methicillin susceptible Staphylococcus aureus (principal); K72.00 Acute and subacute hepatic failure without coma; J12.82 Pneumonia due to coronavirus disease 2019; I30.1 Infective pericarditis; I31.39 Other pericardial effusion (noninflammatory); R79.82 Elevated C-reactive protein (CRP); I70.0 Atherosclerosis of aorta; B97.11 Coxsackievirus as the cause of diseases classified elsewhere; E87.6 Hypokalemia; N17.9 Acute kidney failure, unspecified; J90 Pleural effusion, not elsewhere classified; U07.1 COVID-19; D64.9 Anemia, unspecified; D75.839 Thrombocytosis, unspecified; B15.9 Hepatitis A without hepatic coma; Z87.891 Personal history of nicotine dependence
CPT/HCPCS: 0202U; 33010; 36245; 36569; 71045; 71260; 72193; 74160; 76000; 76705; 76937; 80048; 80053; 80074; 80076; 80202; 80307; 81003; 82042; 82248; 82271; 82550; 82945; 83605; 83615; 83690; 83880; 83986; 84132; 84145; 84157; 84311; 84478; 84484; 85014; 85018; 85025; 85379; 85610; 85651; 85730; 86038; 86140; 86308; 86431; 86480; 86631; 86632; 86635; 86658; 86708; 86738; 86850; 86900; 86901; 87015; 87040; 87075; 87077; 87081; 87101; 87186; 87205; 87206; 87449; 87804; 87899; 88108; 88305; 89051; 93005; 93306; 93308; 93970; 99291; C9113; G0480; G0481; J0456; J0461; J0696; J2250; J2270; J2405; J3010; J3370; J3480; J3490; J7030; J7050; J7060; Q9967; 36415-L1; 36415-TC; 87070

== ENCOUNTER 2024-07-21 08:54 | Emergency (ER) | payer MEDICAID ==
[~2024-07-21] VITALS: Ht 167.6 cm; Wt 81.8 kg
[2024-07-21 08:57] VITALS: TEMP 97.9
[2024-07-21] MEDS ORDERED: ACYCLOVIR 200 MG CAPSULE PO ONE (09:30)
[2024-07-21 09:38] LABS: BASOPHILS % (AUTO) 1.7 % (0.0-2.0); EOSINOPHILS % (AUTO) 9.6 % (1.0-6.0); HEMATOCRIT 45.2 % (41-53); LYMPHOCYTES % (AUTO) 20.3 % (22.0-44.0); MEAN CORPUSCULAR HEMOGLOBIN 28.1 pg (26.0-34.0); MEAN CORPUSCULAR HGB CONC 33.3 G/dL (31.0-37.0); MEAN CORPUSCULAR VOLUME 84 fL (80-100); MONOCYTES # (AUTO) 0.5 K/uL (0.1-1.0); MONOCYTES % (AUTO) 9.9 % (2.0-9.0); NEUTROPHILS # (AUTO) 2.9 K/uL (1.8-7.7); NEUTROPHILS % (AUTO) 58.5 % (40.0-70.0); PLATELET COUNT (AUTO) 229 K/uL (150-450); RED BLOOD CELL COUNT(AUTO) 5.36 MIL/uL (4.50-5.90); RED CELL DISTRIBUTION WIDTH 13.9 % (11.5-14.5)
[2024-07-21 09:47] LABS: ANION GAP 7 mmol/L (8-16); CALCIUM, TOTAL 8.7 mg/dL (8.8-10.5); CARBON DIOXIDE 29 mmol/L (22-29); CHLORIDE 100 mmol/L (98-107); CREATININE 1.34 mg/dL (0.60-1.30); GLOMERULAR FILTR. RATE CALC 55 mL/min (>60); GLUCOSE,RANDOM 112 mg/dL (70-110); POTASSIUM 3.7 mmol/L (3.5-5.1); SODIUM SERUM 136 mmol/L (136-145); UREA NITROGEN, BLOOD 14 mg/dL (7-18)
[2024-07-21 09:57] LABS: TROPONIN I-HIGH SENSITIVITY 38 ng/L (<76)
[2024-07-21] MEDS: ValACYclovir HCL 500 MG TABLET PO ONE (10:27)
[2024-07-21] MEDS: PredniSONE 20 MG TABLET PO ONE (10:28)
[2024-07-21] MEDS ORDERED: PRED-554 PO (12:04)
[2024-07-21] MEDS ORDERED: VALA500T42 PO (12:04)
[2024-07-21 12:47] VITALS: BP 125/81; PULSE 90; RESP 18; O2SAT 98
== END 2024-07-21 12:48 | disposition home or self-care (01) ==
LOC: EMS 08:54
DX: B02.9 Zoster without complications (principal); R07.89 Other chest pain; Z72.89 Other problems related to lifestyle
CPT/HCPCS: 99285; 71045; 80048; 83880; 84484; 85025; 36415; 93005; J7512